=== PATIENT | female | born 1995 | race African-American/Black ===

== ENCOUNTER 2018-08-17 09:25 | Emergency (ER) | payer BC, OTHER ==
[2018-08-17 09:45] VITALS: BP 106/67; PULSE 92; TEMP 98.6; BMI 20.1
--- NOTE | 2018-08-17 10:27 | PDOC ---
History of Present Illness - General Chief Complaint: Vaginal Bleeding Stated Complaint: PAIN Time Seen by Provider: 08/17/18 10:02 History Source: Patient Exam Limitations: No Limitations - History of Present Illness Initial Comments: 08/17/18 10:18 23 yo female no significant pmh presents to the ED for 5 days of vaginal bleeding with clots and generalized weakness. Of note, pt seen by JEWEL CUPPING MACHINE OPERATOR on the for a biopsy for atypical cells visualized on papsmear of her cervix and sprayed with a hemostatic agent on this visit. Pt has had mild spotting since this appointment but states since the it has become profuse bright red blood with 10 pads used per day. LMP 1 month ago, expecting next period Aug 26. Periods are regular, no excessive blood and never passes clots. Denies vaginal pain, malodor, pus drainage, hx of STDs, recent sexual intercourse but admits to very mild RLQ abdominal pain that started on the that is intermittent, non radiating, described as sharp on only lasts for 30 seconds 4 times a day. Past History - Past Medical History Allergies/Adverse Reactions: Allergies Allergy/AdvReac Type Severity Reaction Status Date / Time No Known Allergies Allergy Verified 08/17/18 09:42 Home Medications: Ambulatory Orders Amoxicillin - [Amoxicillin 875mg Tablet -] 875 mg PO BID 08/24/14 Fosfomycin Tromethamine [Monurol (Nf) -] 3 gm PO ONCE #1 packet 08/24/14 Ibuprofen [Advil -] 400 mg PO TID 08/24/14 Asthma: Yes - Suicide/Smoking/Psychosocial Hx Smoking History: Never smoked Review of Systems - Review of Systems Constitutional: No: Chills, Fever Respiratory: No: Shortness of Breath Cardiac (ROS): No: Chest Pain ABD/GI: No: Constipated, Diarrhea, Nausea, Vomiting : Yes: Other (vaginal bleeding 5 days with 10 pads per day). No: Burning, Dysuria, Frequency, Flank Pain, Hematuria Musculoskeletal: No: Muscle Weakness Neurological: Yes: Weakness (generalized) *Physical Exam - Vital Signs Last Vital Signs Temp Pulse Resp BP Pulse Ox 98.6 F 92 H 18 106/67 99 08/17/18 09:42 08/17/18 09:42 08/17/18 09:42 08/17/18 09:42 08/17/18 09:42 - Physical Exam General Appearance: Yes: Nourished, Appropriately Dressed. No: Apparent Distress HEENT: positive: EOMI Respiratory/Chest: positive: Lungs Clear, Normal Breath Sounds Cardiovascular: positive: Regular Rhythm, Regular Rate, S1, S2. negative: Edema , JVD, Murmur Vascular Pulses: Dorsalis-Pedis (R): 4+, Doralis-Pedis (L): 4+ Female Pelvic Exam: positive: cervical os closed, normal adnexa, normal size ovaries, vaginal bleeding. negative: CMT, lesions, Bartholin mass, adnexal tenderness Gastrointestinal/Abdominal: positive: Normal Bowel Sounds, Flat, Soft. negative : Pulsatile Mass, Distended, Guarding, Rebound, Tenderness Musculoskeletal: negative: CVA Tenderness Extremity: positive: Normal Capillary Refill Integumentary: positive: Normal Color, Dry, Warm Neurologic: positive: Fully Oriented, Alert, Normal Mood/Affect, Normal Response Moderate Sedation - Procedure Monitoring Vital Signs: Procedure Monitoring Vital Signs Temperature 98.6 F 08/17/18 09:42 Pulse Rate 92 H 08/17/18 09:42 Respiratory Rate 18 08/17/18 09:42 Blood Pressure 106/67 08/17/18 09:42 O2 Sat by Pulse Oximetry (%) 99 08/17/18 09:42 ED Treatment Course - LABORATORY CBC & Chemistry Diagram: 08/17/18 10:50 08/17/18 10:50 Medical Decision Making - Medical Decision Making Pt presents with vag bleeding for 5 days, 10 pads perday after colposcopy on the . Vitals WNL NAD AOX3 DDX includes but is not limited to : bleeding from site of colposcopy, vaginal lesion, cervical/endometrial CA 08/17/18 11:[address] Ignacio who is the Pts JEWEL CUPPING MACHINE OPERATOR who knows pt well and due to a normal hemoglobin pt is stable and can follow up in his office tmr at 3 30pm. Discussed normal Hgb with OB and states the rest of the lab work pending is not necessary to DC home 08/17/18 11:33 Pt understands and agrees with plan Strict return precautions given *DC/Admit/Observation/Transfer Diagnosis at time of Disposition: Vaginal bleeding - Discharge Dispostion Disposition: HOME Condition at time of disposition: Stable Decision to Admit order: No - Referrals Referrals: Cho,Luis Antonio Y [Primary Care Provider] - Katerina Ignacio MD [Staff Physician] - - Patient Instructions Printed Discharge Instructions: DI for Vaginal Bleeding Additional Instructions: Please go to your JEWEL CUPPING MACHINE OPERATOR doctors office tomorrow for an appointment scheduled at 3 30 pm. He is expecting you. Return to the emergency for new or concerning symptoms including but not limited to: excessive vaginal bleeding, profound fatigue or weakness, severe vaginal or abdominal pain, fevers/chills or difficulty using the bathroom. Thank you - Post Discharge Activity Forms/Work/School Notes: Back to Work
[2018-08-17 11:09] LABS: BASO % 0.8 % (0-2.0); EOS % 4.9 % (0-4.5); HEMATOCRIT 37.9 % (32.4-45.2); HEMOGLOBIN 13.6 GM/dL (10.7-15.3); LYMPH % 25.8 % (8-40); MCH 34.3 pg (25.7-33.7); MEAN CELL VOLUME 95.2 fl (80-96); MEAN PLT VOLUME 8.7 fl (7.5-11.1); MONO % 8.4 % (3.8-10.2); NEUT % 60.1 % (42.8-82.8); PLATELET COUNT 254 K/MM3 (134-434); RBC 3.98 M/mm3 (3.60-5.2); RDW 11.6 % (11.6-15.6); WHITE BLOOD COUNT 5.5 K/mm3 (4.0-10.0)
[2018-08-17 11:38] LABS: INR 1.01 (0.83-1.09); PROTHROMBIN TIME (PATIENT) 11.9 SEC (9.7-13.0)
--- NOTE | 2018-08-17 11:50 | PDOC ---
Attending Attestation - Resident Resident Name: YaraAlan - ED Attending Attestation I have performed the following: I have examined & evaluated the patient, The case was reviewed & discussed with the resident, I agree w/resident's findings & plan - HPI HPI: 08/17/18 11:47 23 y/o female with asthma, Recent colpo for atypical cervical cells 08/08/18 with kapok machine operator, p/w heavy VB x 5 days, with passage of clots, occasional RLQ pain sharp and nonradiating. No f/c, n/v/d. No urinary sx Usually regular menses, LMP 07/24/18. denies sexual activity, no abnormal odor/ discharge. CANCER GENETICS ASSISTANT: Dr Ignacio - Physicial Exam PE: 08/17/18 11:48 Pelvic exam performed by resident, blood in the vault, but otherwise unremarkable cervix, closed and no adnexal tenderness. NAD, well appearing, PERRL, EOMI, MMM, nl conjunctiva, anicteric; neck supple. lungs clear, RRR, abdomen soft nontender. no cvat. ALEXANDRE x4. No peripheral edema. normal color for ethnicity, WWP. - Medical Decision Making 08/17/18 11:48 See HPI for details Vital signs reviewed, wnl. Prior notes reviewed, including admissions, discharges and consultations. laboratory results and imaging reviewed, basic labs and lytes wnl, no e/o anemia. Neg preg test. UA not needed. ED course: no significant bleeding here. HD stable, abdomen soft, nondistended and nontender. no dizziness/choi, sob/cp. got in contact with Dr. Ignacio, who will see her tomorrow for VB post colpo and reeval. Discharge: Pt to be discharged in stable condition. Patient made aware of impression and plan, return precautions discussed (including but not limited to worsening pain or symptoms), heavy VB, fevers, or signs of infection, chest pain , respiratory distress, inability to tolerate oral intake, dehydration, syncope , or neurologic changes). Follow up with PMD and/or specialist as recommended, follow up information provided, take medications as instructed for duration of time. continue with supportive care, avoid triggers and precipitants. All questions answered to patient's satisfaction and expressed understanding and comfort with this. 08/17/18 11:49
== END 2018-08-17 12:01 | disposition home or self-care (01) ==
LOC: JER 09:25
DX: N93.8 Other specified abnormal uterine and vaginal bleeding (principal); N99.820 Postprocedural hemorrhage of a genitourinary system organ or structure following a genitourinary system procedure
CPT/HCPCS: 36415; 85025; 85610; 99282-25